=== PATIENT | female | born 1980 | race Caucasian/White ===

== ENCOUNTER 2017-08-27 16:35 | Emergency (ER) | payer OTHER ==
[~2017-08-27] VITALS: Ht 162.6 cm; Wt 79.4 kg
[~2017-08-27 16:35] MED LIST: ALBUTEROL SULF8.5 GM IH; ALBUTEROL2.5 MG/3 M INH; BACTROBAN22 GM TP; BENTYL20 MG PO; CALCIUM CARBON200 MG PO; CLEOCIN HCL300 MG PO; CYCLOBENZAPRINE10 MG PO; CYMBALTA30 MG PO; DICYCLOMINE HCL10 MG PO; FLOVENT DISKU100 MCG INH; GABAPENTIN100 MG PO; GABAPENTIN600 MG PO; GUAIFENESIN-CO118 ML PO; HYDROCODON-ACE1 EA14 PO; NORCO 10-325 T1 EACH PO; NORCO 5-325 TA1 EACH PO; OMEPRAZOLE20 M1 PO; OMEPRAZOLE20 MG PO; OXYBUTYNIN CHLOR5 MG PO; PENICILLIN V P250 MG; PROMETHAZINE HC25 M1 PO; RIFADIN300 MG PO; VENTOLIN HFA18 GM INH; VICODIN HP 10-1 EAC1 PO; ZOFRAN ODT4 MG PO
== END 2017-08-27 18:31 | disposition home or self-care (01) ==
LOC: ED 16:35
DX: Z32.02 Encounter for pregnancy test, result negative (principal); J45.909 Unspecified asthma, uncomplicated; F17.200 Nicotine dependence, unspecified, uncomplicated; Z98.51 Tubal ligation status; Z88.8 Allergy status to other drugs, medicaments and biological substances; Z79.899 Other long term (current) drug therapy
CPT/HCPCS: 84703; 99283

== ENCOUNTER 2019-05-10 12:14 | Emergency (ER) | payer OTHER ==
[~2019-05-10] VITALS: Ht 162.6 cm; Wt 68.4 kg
[2019-05-10] MEDS ORDERED: ULTRAM50 MG PO (13:49)
[2019-05-10] MEDS ORDERED: CYCLOBENZAPRINE10 MG PO (13:49)
== END 2019-05-10 14:39 | disposition home or self-care (01) ==
LOC: ED 12:14
DX: S29.9XXA Unspecified injury of thorax, initial encounter (principal); F17.200 Nicotine dependence, unspecified, uncomplicated; Z88.8 Allergy status to other drugs, medicaments and biological substances; X50.1XXA Overexertion from prolonged static or awkward postures, initial encounter
CPT/HCPCS: 96372; 99283; J1885

== ENCOUNTER 2021-03-07 10:10 | Emergency (ER) | payer OTHER ==
[~2021-03-07] VITALS: Ht 162.6 cm; Wt 68.0 kg
[~2021-03-07 10:10] MED LIST changes: +ULTRAM50 MG PO
== END 2021-03-07 11:56 | disposition home or self-care (01) ==
LOC: ED 10:10
DX: S80.02XA Contusion of left knee, initial encounter (principal); S80.262A Insect bite (nonvenomous), left knee, initial encounter; W57.XXXA Bitten or stung by nonvenomous insect and other nonvenomous arthropods, initial encounter; J45.909 Unspecified asthma, uncomplicated; F17.200 Nicotine dependence, unspecified, uncomplicated; Z88.8 Allergy status to other drugs, medicaments and biological substances
CPT/HCPCS: 87491; 87591; 99283

== ENCOUNTER 2021-10-22 16:43 | Emergency (ER) | payer OTHER ==
[~2021-10-22] VITALS: Ht 167.6 cm; Wt 77.1 kg
[2021-10-22] MEDS ORDERED: CYCLOBENZAPRINE10 MG PO (21:28)
[2021-10-22] MEDS ORDERED: AUGMENTIN 875-1 EACH PO (21:28)
== END 2021-10-22 21:45 | disposition home or self-care (01) ==
LOC: ED 16:43 → EDBD 16:43 → ED 16:43
DX: F15.10 Other stimulant abuse, uncomplicated (principal); F19.10 Other psychoactive substance abuse, uncomplicated
CPT/HCPCS: 36415; 70470; 80053; 83605; 84703; 85025; 87040; 96375; 96376; 99284-25; C9803; J1170; J2405; J7030; Q9967; U0003

== ENCOUNTER 2022-03-11 23:21 | Emergency (ER) | payer OTHER ==
[~2022-03-11] VITALS: Ht 162.6 cm; Wt 75.0 kg
[~2022-03-11 23:21] MED LIST changes: +AUGMENTIN 875-1 EACH PO
[2022-03-12] MEDS ORDERED: ONDANSETRON ODT4 MG PO (03:06)
== END 2022-03-12 03:49 | disposition home or self-care (01) ==
LOC: ED 23:21
DX: S06.0X0A Concussion without loss of consciousness, initial encounter (principal); W01.198A Fall on same level from slipping, tripping and stumbling with subsequent striking against other object, initial encounter; F17.200 Nicotine dependence, unspecified, uncomplicated; Z88.8 Allergy status to other drugs, medicaments and biological substances
CPT/HCPCS: 70450; 72125; 84703; A9270

== ENCOUNTER 2022-04-12 16:45 | Emergency (ER) | payer OTHER ==
[~2022-04-12] VITALS: Ht 162.6 cm; Wt 76.2 kg
[~2022-04-12 16:45] MED LIST changes: +ONDANSETRON ODT4 MG PO
[2022-04-12] MEDS ORDERED: CEPHALEXIN500 MG PO (20:37)
[2022-04-12] MEDS ORDERED: HYDROCODON-ACE1 EA10 PO (20:37)
== END 2022-04-12 20:54 | disposition home or self-care (01) ==
LOC: ED 16:45
DX: S02.5XXA Fracture of tooth (traumatic), initial encounter for closed fracture (principal); K02.9 Dental caries, unspecified; W22.8XXA Striking against or struck by other objects, initial encounter; F17.200 Nicotine dependence, unspecified, uncomplicated; Z88.8 Allergy status to other drugs, medicaments and biological substances
CPT/HCPCS: 99283; A9270

== ENCOUNTER 2022-06-30 15:35 | Emergency (ER) | payer OTHER ==
[~2022-06-30] VITALS: Ht 162.6 cm; Wt 76.4 kg
[~2022-06-30 15:35] MED LIST changes: +CEPHALEXIN500 MG PO; +HYDROCODON-ACE1 EA10 PO
--- OUTSIDE RECORDS SUMMARY | 2022-06-30 15:40 | XMS ---
PreManage Notification: RENAE GUTIÉRREZ Security Chiller Operator Events No recent Security Events currently on file CRITERIA MET - [facility] - 2 Visits in 30 Days CARE PROVIDERS There are no care providers on record at this time. Blair has no Care Guidelines for this patient. Get VISIT COUNT (12 MO.) 1 [facility] NOTE: Visits indicate total known visits. ED/C VISIT TRACKING (12 MO.) [facility]22 [facility] COMPLAINT: - STROKE SYMPTOMS 06/05/2022 15:11 [facility] [place] TYPE: Emergency DIAGNOSES: - HEADACHE - Headache, unspecified 06/02/2022 15:48 [facility] [place] TYPE: Emergency COMPLAINT: - VOMITING DIAGNOSES: - Nausea with vomiting, unspecified - Dehydration - Allergy status to other drugs, medicaments and biological substances - Hypotension, unspecified - Nicotine dependence, unspecified, uncomplicated - Contact with and (suspected) exposure to COVID-19 04/12/2022 16:45 [facility] [place] TYPE: Emergency COMPLAINT: - EAR PAIN DIAGNOSES: - Allergy status to other drugs, medicaments and biological substances - Nicotine dependence, unspecified, uncomplicated - Otalgia, right ear - Dental caries, unspecified - Striking against or struck by other objects, initial encounter - Fracture of tooth (traumatic), initial encounter for closed fracture 03/11/2022 23:21 [facility] Diaz [place] TYPE: Emergency COMPLAINT: - HEAD INJURY DIAGNOSES: - Fall on same level from slipping, tripping and stumbling with subsequent striking against other object, initial encounter - Concussion with loss of consciousness of unspecified duration, initial encounter - Allergy status to other drugs, medicaments and biological substances - Headache, unspecified - Nicotine dependence, unspecified, uncomplicated - Concussion without loss of consciousness, initial encounter 10/22/2021 16:43 [facility] [place] TYPE: Emergency COMPLAINT: - DIFFICULTY BREATHING DIAGNOSES: - COVID-19 - Headache, unspecified - Other psychoactive substance abuse, uncomplicated - Other stimulant abuse, uncomplicated INPATIENT VISIT TRACKING (12 MO.) No inpatient visits to display in this time frame [id number]
[2022-06-30] MEDS ORDERED: PREDNISONE20 MG PO (16:08)
== END 2022-06-30 16:18 | disposition home or self-care (01) ==
LOC: ED 15:35
DX: G51.0 Bell's palsy (principal); F17.200 Nicotine dependence, unspecified, uncomplicated; Z88.8 Allergy status to other drugs, medicaments and biological substances
CPT/HCPCS: 99283; J7512

== ENCOUNTER 2022-07-09 14:18 | Emergency (ER) | payer OTHER ==
[~2022-07-09] VITALS: Ht 162.6 cm; Wt 75.0 kg
[~2022-07-09 14:18] MED LIST changes: +PREDNISONE20 MG PO
--- OUTSIDE RECORDS SUMMARY | 2022-07-09 14:26 | XMS ---
PreManage Notification: RENAE GUTIÉRREZ Security Accordion Repairer Events No recent Security Events currently on file CRITERIA MET - [facility] - 2 Visits in 30 Days - 6 ED Visits in 6 Months CARE PROVIDERS There are no care providers on record at this time. Blair has no Care Guidelines for this patient. EDionte VISIT COUNT (12 MO.) 1 [facility] NOTE: Visits indicate total known visits. ED/C VISIT TRACKING (12 MO.) 07/09/2022 14[facility] COMPLAINT: - HEAD PAIN 06/30/2022 15:[facility] [place] TYPE: Emergency COMPLAINT: - STROKE SYMPTOMS 06/05/2022 15:11 [facility] [place] TYPE: Emergency DIAGNOSES: - Headache, unspecified - HEADACHE 06/02/2022 15:[address] [facility] [place] TYPE: Emergency COMPLAINT: - VOMITING DIAGNOSES: - Dehydration - Allergy status to other drugs, medicaments and biological substances - Hypotension, unspecified - Nicotine dependence, unspecified, uncomplicated - Contact with and (suspected) exposure to COVID-19 - Nausea with vomiting, unspecified 04/12/2022 16:[address] [facility] [place] TYPE: Emergency COMPLAINT: - EAR PAIN DIAGNOSES: - Nicotine dependence, unspecified, uncomplicated - Otalgia, right ear - Dental caries, unspecified - Striking against or struck by other objects, initial encounter - Fracture of tooth (traumatic), initial encounter for closed fracture - Allergy status to other drugs, medicaments and biological substances 03/11/2022 23:21 [facility] [place] TYPE: Emergency COMPLAINT: - HEAD INJURY DIAGNOSES: - Concussion with loss of consciousness of unspecified duration, initial encounter - Allergy status to other drugs, medicaments and biological substances - Headache, unspecified - Nicotine dependence, unspecified, uncomplicated - Concussion without loss of consciousness, initial encounter - Fall on same level from slipping, tripping and stumbling with subsequent striking against other object, initial encounter 10/22/2021 16:43 [facility] [place] TYPE: Emergency COMPLAINT: - DIFFICULTY BREATHING DIAGNOSES: - Headache, unspecified - Other psychoactive substance abuse, uncomplicated - Other stimulant abuse, uncomplicated - COVID-19 INPATIENT VISIT TRACKING (12 MO.) No inpatient visits to display in this time frame [id number]
[2022-07-09] MEDS ORDERED: PREDNISONE20 MG PO (18:26)
[2022-07-09] MEDS ORDERED: ONDANSETRON HCL4 MG PO (18:26)
[2022-07-09] MEDS ORDERED: CLEOCIN HCL300 MG PO (18:26)
[2022-07-09] MEDS ORDERED: HYDROCODON-ACE1 EA10 PO (18:26)
== END 2022-07-09 18:40 | disposition home or self-care (01) ==
LOC: ED 14:18
DX: R29.810 Facial weakness (principal); F17.200 Nicotine dependence, unspecified, uncomplicated; Z88.8 Allergy status to other drugs, medicaments and biological substances
CPT/HCPCS: 36415; 70450; 70496; 70498; 80053; 85025; A9270; Q9967

== ENCOUNTER 2023-07-11 21:57 | Emergency (ER) | payer OTHER ==
[~2023-07-11] VITALS: Ht 162.6 cm; Wt 75.7 kg
[~2023-07-11 21:57] MED LIST changes: +ONDANSETRON HCL4 MG PO
[2023-07-11 22:58] LABS: BASOPHILS 0.4 % (0-2); EOSINOPHILS 3.4 % (0-6); HEMATOCRIT 42.2 % (35.0-50.0); HEMOGLOBIN 14.1 g/dL (12.0-18.0); LYMPHOCYTES 29.4 % (24-44); MCH 30.4 (27-36); MCHC 33.5 g/dl (30-36); MCV 90.7 fl (81-99); MONOCYTES 8.2 % (0-12); NEUTROPHILS 58.6 % (39-80); PLATELET COUNT 308 K/uL (140-440); RBC 4.66 M/ul (4.3-5.7); RDW 13.7 (10.5-15.0)
[2023-07-11 23:07] LABS: ALBUMIN 3.7 g/dL (3.4-5.0); ALBUMIN/GLOBULIN RATIO 1.06 (1.1-2.4); ANION GAP 10.2 (7-21); BILIRUBIN, TOTAL 0.2 ng/dL (0.2-1.0); BUN/CREATININE RATIO 18.86 (6.0-28.6); CALCIUM 9.3 mg/dL (8.5-10.1); CREATININE, SERUM 1.06 mg/dL (0.55-1.02); POTASSIUM 4.2 mmol/L (3.5-5.1); PROTEIN, TOTAL 7.2 g/dL (6.4-8.2)
[2023-07-11 23:22] LABS: BILIRUBIN, URINE NEGATIVE (negative); BLOOD/HGB, URINE NEGATIVE (Negative); KETONE, URINE NEGATIVE (Negative); LEUK ESTERASE, URINE TRACE (negative); NITRITE, URINE NEGATIVE (negative)
[2023-07-11 23:28] LABS: BACTERIA, URINE RARE /hpf (negative); EPITHELIAL CELLS, URINE SQUAMOUS 3+ /lpf (0-1+); RED BLOOD CELLS, URINE 0-1 /hpf (0-5)
[2023-07-11 23:29] LABS: COLLECTION TYPE, URINE 8; REFLEX CULTURE, URINE No (No)
[2023-07-12] MEDS ORDERED: TRAMADOL HCL50 MG PO (00:29)
[2023-07-12 00:57] VITALS: BP 122/98
== END 2023-07-12 00:57 | disposition home or self-care (01) ==
LOC: ED 21:57
PROVIDERS: Family Medicine
DX: S39.011A Strain of muscle, fascia and tendon of abdomen, initial encounter (principal); X58.XXXA Exposure to other specified factors, initial encounter; J45.909 Unspecified asthma, uncomplicated; F17.200 Nicotine dependence, unspecified, uncomplicated; Z88.8 Allergy status to other drugs, medicaments and biological substances
CPT/HCPCS: 36415; 74177; 80053; 81001; 84703; 85025; 96375; 99284-25; A9270; J2270; J2405; J7030; Q9967

== ENCOUNTER 2024-08-24 12:58 | Emergency (ER) | payer OTHER ==
[~2024-08-24] VITALS: Ht 162.6 cm; Wt 77.2 kg
[~2024-08-24 12:58] MED LIST changes: +TRAMADOL HCL50 MG PO
[2024-08-24] MEDS ORDERED: HYDROCODON-ACE1 EA10 PO (13:51)
[2024-08-24] MEDS ORDERED: AMOX TR-K CLV1 EAC1 PO (13:51)
[2024-08-24] MEDS ORDERED: HYDROCODONE/ACETA 5/325 TAB PO ONE (14:00)
[2024-08-24] MEDS ORDERED: AMOXICILLIN/CLAVULANATE K 875 MG TAB PO ONE (14:00)
[2024-08-24 14:01] VITALS: BP 138/99
== END 2024-08-24 14:02 | disposition home or self-care (01) ==
LOC: ED 12:58
DX: K08.89 Other specified disorders of teeth and supporting structures (principal); J45.909 Unspecified asthma, uncomplicated; F17.200 Nicotine dependence, unspecified, uncomplicated; Z88.8 Allergy status to other drugs, medicaments and biological substances
CPT/HCPCS: 99282

== ENCOUNTER 2024-09-17 15:18 | Emergency (ER) | payer OTHER ==
[~2024-09-17] VITALS: Ht 162.6 cm; Wt 76.2 kg
[~2024-09-17 15:18] MED LIST changes: +AMOX TR-K CLV1 EAC1 PO
--- OUTSIDE RECORDS SUMMARY | 2024-09-17 15:26 | XMS ---
PreManage Notification: RENAE GUTIÉRREZ Security Ibm Bpm Developer Events No recent Security Events currently on file CRITERIA MET - [facility] - 2 Visits in 30 Days CARE PROVIDERS -, [facility] Dentist: Manager Knowledge [facility] PHONE: [phone] -Eleanor- Dentist: Manager Knowledge [facility] PHONE: [phone] [facility] Clinic[facility]Center: Primary Care [facility] PHONE: [phone] Blair has no Care Guidelines for this patient. E.D. VISIT COUNT (12 MO.) [address] [facility] TOTAL 4 NOTE: Visits indicate total known visits. ED/UCC VISIT TRACKING (12 MO.) 09/17/2024 15:19 [facility] [place] TYPE: Emergency COMPLAINT: - MOUTH PAIN 08/24/2024 12:59 [facility] Diaz [place] TYPE: Emergency COMPLAINT: - DENTAL PAIN DIAGNOSES: - Allergy status to other drugs, medicaments and biological substances - Nicotine dependence, unspecified, uncomplicated - Other specified disorders of teeth and supporting structures - Unspecified asthma, uncomplicated 12/09/2023 14:03 [facility] [place] TYPE: Emergency COMPLAINT: - L SIDE FACE NUMB/DROOPY DIAGNOSES: - Allergy status to other drugs, medicaments and biological substances - Zavaleta's palsy - Facial weakness - Multiple sclerosis - Nicotine dependence, unspecified, uncomplicated - Unspecified asthma, uncomplicated 09/24/2023 17:51 [facility] [place] TYPE: Emergency COMPLAINT: - HEAD INJURY INPATIENT VISIT TRACKING (12 MO.) No inpatient visits to display in this time frame [id number]
[2024-09-17] MEDS ORDERED: AMOX TR-K CLV1 EAC1 PO (19:50)
[2024-09-17 19:59] VITALS: BP 110/90
[2024-09-17] MEDS ORDERED: HYDROCODONE BIT/ACETAMINOPHEN 5/325 MG 1 TAB HOME.PACK PO ONE (20:00)
[2024-09-17] MEDS ORDERED: AMOXICILLIN/CLAVULANATE K 875 MG HOME.PACK PO ONE (20:00)
--- OUTSIDE RECORDS SUMMARY | 2024-09-17 20:02 | XMS ---
PreManage Notification: RENAE GUTIÉRREZ Security Mid Wife Events No recent Security Events currently on file CRITERIA MET - [facility] - 2 Visits in 30 Days CARE PROVIDERS -, [facility] Dentist: Hairspring Cutter [facility] PHONE: [phone] -Eleanor- Dentist: Hairspring Cutter [facility] PHONE: [phone] [facility] Clinic[facility]Center: Primary Care [facility] PHONE: [phone] Blair has no Care Guidelines for this patient. E.D. VISIT COUNT (12 MO.) [address] [facility] TOTAL 4 NOTE: Visits indicate total known visits. ED/UCC VISIT TRACKING (12 MO.) 09/17/2024 15:19 [facility] [place] TYPE: Emergency COMPLAINT: - WOUND DEHISCENCE RIGHT LEG 08/24/2024 12:59 [facility] Diaz [place] TYPE: Emergency [...] HEAD INJURY INPATIENT VISIT TRACKING (12 MO.) 09/17/2024 18:59 [facility] Diaz [place] TYPE: Critical Care COMPLAINT: - WOUND DEHISCENCE RIGHT LEG [id number]
== END 2024-09-17 19:55 | disposition home or self-care (01) ==
LOC: ED 15:18 → CCU 18:59 → ED 18:59
DX: K04.7 Periapical abscess without sinus (principal); G35 Multiple sclerosis; F17.200 Nicotine dependence, unspecified, uncomplicated; Z88.8 Allergy status to other drugs, medicaments and biological substances
CPT/HCPCS: 99282; A9270

== ENCOUNTER 2024-10-28 09:37 | Emergency (ER) | payer OTHER ==
[~2024-10-28] VITALS: Ht 162.6 cm; Wt 73.9 kg
[2024-10-28 10:31] LABS: BASOPHILS 0.4 % (0-2); EOSINOPHILS 2.3 % (0-6); HEMATOCRIT 36.6 % (35.0-50.0); HEMOGLOBIN 12.7 g/dL (12.0-18.0); MCH 30.7 (27-36); MCHC 34.6 g/dl (30-36); MCV 88.7 fl (81-99); MONOCYTES 7.4 % (0-12); NEUTROPHILS 72.9 % (39-80); PLATELET COUNT 237 K/uL (140-440); RBC 4.13 M/ul (4.3-5.7); RDW 14.3 (10.5-15.0)
[2024-10-28 10:42] LABS: ANION GAP 10.5 (7-21); CALCIUM 9.5 mg/dL (8.5-10.1); CREATININE, SERUM 0.75 mg/dL (0.55-1.02); POTASSIUM 3.5 mmol/L (3.5-5.1)
[2024-10-28 11:55] VITALS: BP 114/78
== END 2024-10-28 11:55 | disposition home or self-care (01) ==
LOC: ED 09:37
PROVIDERS: Emergency Medicine
DX: K04.7 Periapical abscess without sinus (principal); R59.9 Enlarged lymph nodes, unspecified; J45.909 Unspecified asthma, uncomplicated; G35 Multiple sclerosis; G51.0 Bell's palsy; F17.200 Nicotine dependence, unspecified, uncomplicated; Z88.8 Allergy status to other drugs, medicaments and biological substances
CPT/HCPCS: 36415; 70491; 80048; 85025; 99284-25; Q9967

== ENCOUNTER 2024-11-02 14:48 | Emergency (ER) | payer OTHER ==
[~2024-11-02] VITALS: Ht 162.6 cm; Wt 71.7 kg
--- OUTSIDE RECORDS SUMMARY | 2024-11-02 14:55 | XMS ---
PreManage Notification: RENAE GUTIÉRREZ Security Wedding Planning Internship Events No recent Security Events currently on file CRITERIA MET - [facility] - 2 Visits in 30 Days CARE PROVIDERS -, [facility] Dentist: Supervisor Furnace [employer] [facility] PHONE: [phone] -Eleanor- Dentist: Supervisor Furn[employer] Room [facility] PHONE: [phone] [facility] Clinic[facility]Center: Primary Care [facility] PHONE: [phone] Blair has no Care Guidelines for this patient. E.D. VISIT COUNT (12 MO.) 5 [facility] TOTAL 5 NOTE: Visits indicate total known visits. ED/UCC VISIT TRACKING (12 MO.) 11/02/2024 14:49 [facility] Diaz [place] TYPE: Emergency COMPLAINT: - VAGINAL BLEEDING 10/28/2024 09:37 [facility] [place] TYPE: Emergency COMPLAINT: - NECK PAIN DIAGNOSES: - Allergy status to other drugs, medicaments and biological substances - Zavaleta's palsy - Cervicalgia - Enlarged lymph nodes, unspecified - Multiple sclerosis - Nicotine dependence, unspecified, uncomplicated - Periapical abscess without sinus - Unspecified asthma, uncomplicated 09/17/2024 15:19 [facility] Luke HKriss [facility] [place] TYPE: Emergency COMPLAINT: - WOUND DEHISCENCE RIGHT LEG DIAGNOSES: - Allergy status to other drugs, medicaments and biological substances - Multiple sclerosis - Nicotine dependence, unspecified, uncomplicated - Other specified disorders of teeth and supporting structures - Periapical abscess without sinus 08/24/2024 12:59 [facility] [place] TYPE: Emergency COMPLAINT: - DENTAL PAIN DIAGNOSES: - Allergy status to other drugs, medicaments and biological substances - Nicotine dependence, unspecified, uncomplicated - Other specified disorders of teeth and supporting structures - Unspecified asthma, uncomplicated 12/09/2023 14:03 [facility] Luke [facility]riss [facility] [place] TYPE: Emergency COMPLAINT: - L SIDE FACE NUMB/DROOPY DIAGNOSES: - Allergy status to other drugs, medicaments and biological substances - Zavaleta's palsy - Facial weakness - Multiple sclerosis - Nicotine dependence, unspecified, uncomplicated - Unspecified asthma, uncomplicated INPATIENT VISIT TRACKING (12 MO.) 09/17/2024 18:59 [facility] Diaz [place] TYPE: Critical Care COMPLAINT: - WOUND DEHISCENCE RIGHT LEG [id number]
[2024-11-02 15:58] LABS: BASOPHILS 0.6 % (0-2); EOSINOPHILS 2.9 % (0-6); HEMATOCRIT 37.9 % (35.0-50.0); LYMPHOCYTES 26.7 % (24-44); MCH 30.4 (27-36); MCHC 34.2 g/dl (30-36); MCV 88.8 fl (81-99); MONOCYTES 5.2 % (0-12); NEUTROPHILS 64.6 % (39-80); PLATELET COUNT 270 K/uL (140-440); RBC 4.27 M/ul (4.3-5.7); RDW 14.1 (10.5-15.0)
[2024-11-02 16:08] LABS: BUN/CREATININE RATIO 23.52 (6.0-28.6); CALCIUM 9.7 mg/dL (8.5-10.1); CREATININE, SERUM 0.68 mg/dL (0.55-1.02)
[2024-11-02 16:20] LABS: ABO O; RH NEGATIVE
[2024-11-02] MEDS ORDERED: APRI1 EACH PO (17:36)
[2024-11-02] MEDS ORDERED: SODIUM CHLORIDE 0.9% 1,000 ML IV PRN (17:45)
[2024-11-02 19:00] VITALS: BP 109/91
== END 2024-11-02 19:00 | disposition home or self-care (01) ==
LOC: ED 14:48
PROVIDERS: Emergency Medicine
DX: N93.9 Abnormal uterine and vaginal bleeding, unspecified (principal); J45.909 Unspecified asthma, uncomplicated; F17.200 Nicotine dependence, unspecified, uncomplicated; Z88.8 Allergy status to other drugs, medicaments and biological substances
CPT/HCPCS: 36415; 80048; 84703; 85025; 86900; 86901; 99284; J7030

== ENCOUNTER 2024-11-18 05:52 | Emergency (ER) | payer OTHER ==
[~2024-11-18] VITALS: Ht 162.6 cm; Wt 76.7 kg
[~2024-11-18 05:52] MED LIST changes: +APRI1 EACH PO
--- OUTSIDE RECORDS SUMMARY | 2024-11-18 05:57 | XMS ---
PreManage Notification: RENAE GUTIÉRREZ Security Supervisor Properties Events No recent Security Events currently on file CRITERIA MET - [facility] - 2 Visits in 30 Days CARE PROVIDERS -, [facility] Dentist: Director Pharmacy Services [facility] PHONE: [phone] -Eleanor- Dentist: Director Pharmacy Services [facility] PHONE: [phone] [facility] Clinic[facility]Center: Primary Care [facility] PHONE: [phone] Blair has no Care Guidelines for this patient. E.D. VISIT COUNT (12 MO.) 6 MELANIE Sosa TOTAL 6 NOTE: Visits indicate total known visits. ED/UCC VISIT TRACKING (12 MO.) 11/18/2024 05:52 [facility] Diaz [place] TYPE: Emergency COMPLAINT: - BURN 11/02/2024 14:49 [facility] Diaz [place] TYPE: Emergency COMPLAINT: - VAGINAL BLEEDING DIAGNOSES: - Abnormal uterine and vaginal bleeding, unspecified - Allergy status to other drugs, medicaments and biological substances - Nicotine dependence, unspecified, uncomplicated - Unspecified asthma, uncomplicated 10/28/2024 09:37 [facility] Diaz [place] TYPE: Emergency COMPLAINT: - NECK PAIN DIAGNOSES: - Allergy status to other drugs, medicaments and biological substances - Zavaleta's palsy - Cervicalgia - Enlarged lymph nodes, unspecified - Multiple sclerosis - Nicotine dependence, unspecified, uncomplicated - Periapical abscess without sinus - Unspecified asthma, uncomplicated 09/17/2024 15:19 [facility] [place] TYPE: Emergency COMPLAINT: - WOUND DEHISCENCE RIGHT LEG DIAGNOSES: - Allergy status to other drugs, medicaments and biological substances - Multiple sclerosis - Nicotine dependence, unspecified, uncomplicated - Other specified disorders of teeth and supporting structures - Periapical abscess without sinus 08/24/2024 12:59 [facility] Diaz [place] TYPE: Emergency [...] Care COMPLAINT: - WOUND DEHISCENCE RIGHT LEG [id number]
[2024-11-18] MEDS ORDERED: AMOX TR-K CLV1 EAC1 PO (06:02)
[2024-11-18] MEDS ORDERED: PERCOCET 5-3251 EACH PO (06:10)
[2024-11-18] MEDS ORDERED: OXYCODONE/APAP 5/325 TAB PO ONE (06:15)
[2024-11-18] MEDS ORDERED: SILVER SULFADIAZINE 400 GM HOME.PACK TOP ONE (06:15)
[2024-11-18] MEDS ORDERED: OXYCODONE/ACETAMINOPHEN 1 TAB HOME.PACK PO ONE (06:15)
[2024-11-18] MEDS ORDERED: DIPHTH,PERTUSS(ACELL),TET VAC 0.5 ML SYRINGE IM ONE (06:15)
[2024-11-18 06:39] VITALS: BP 145/79
== END 2024-11-18 06:40 | disposition home or self-care (01) ==
LOC: ED 05:52
DX: T20.17XA Burn of first degree of neck, initial encounter (principal); J45.909 Unspecified asthma, uncomplicated; F17.200 Nicotine dependence, unspecified, uncomplicated; Z88.8 Allergy status to other drugs, medicaments and biological substances; Z79.3 Long term (current) use of hormonal contraceptives; X10.1XXA Contact with hot food, initial encounter; Y93.G1 Activity, food preparation and clean up
CPT/HCPCS: 16000; 90471; 90715; 99283-25

== ENCOUNTER 2025-05-26 08:31 | Emergency (ER) | payer OTHER ==
[~2025-05-26] VITALS: Ht 162.6 cm; Wt 77.0 kg
[~2025-05-26 08:31] MED LIST changes: +PERCOCET 5-3251 EACH PO
[2025-05-26] MEDS ORDERED: SODIUM CHLORIDE 0.9% 1,000 ML IV ONE (09:00)
[2025-05-26] MEDS ORDERED: KETOROLAC TROMETHAMINE 30 MG/ML VIAL IV ONE (09:00)
[2025-05-26] MEDS ORDERED: AMOXICILLIN500 MG PO (10:31)
[2025-05-26 11:45] VITALS: BP 142/78
== END 2025-05-26 11:47 | disposition home or self-care (01) ==
LOC: ED 08:31
DX: J32.4 Chronic pansinusitis (principal); K04.7 Periapical abscess without sinus; J45.909 Unspecified asthma, uncomplicated; F17.200 Nicotine dependence, unspecified, uncomplicated; Z88.8 Allergy status to other drugs, medicaments and biological substances
CPT/HCPCS: 70450; 96374; 96375; 99284-25; J1200; J1885; J2405; J7030

== ENCOUNTER 2025-07-18 14:12 | Emergency (ER) | payer OTHER ==
[~2025-07-18] VITALS: Ht 162.6 cm; Wt 77.7 kg
[~2025-07-18 14:12] MED LIST changes: +AMOXICILLIN500 MG PO
[2025-07-18] MEDS ORDERED: HYDROmorphone HCL 1 MG/ML SYR IM ONE (15:15)
[2025-07-18 16:35] VITALS: BP 113/64
[2025-07-18] MEDS ORDERED: IBU600 MG PO (17:30)
== END 2025-07-18 16:35 | disposition home or self-care (01) ==
LOC: ED 14:12
DX: S93.401A Sprain of unspecified ligament of right ankle, initial encounter (principal); X50.0XXA Overexertion from strenuous movement or load, initial encounter; J45.909 Unspecified asthma, uncomplicated; F17.200 Nicotine dependence, unspecified, uncomplicated; Z88.8 Allergy status to other drugs, medicaments and biological substances
CPT/HCPCS: 29515; 73610; 99283-25